=== PATIENT | male | born 1975 | race Caucasian/White ===

== ENCOUNTER 2022-04-30 15:56 | Emergency (ER) | payer OTHER, SELFPAY ==
[2022-04-30] MEDS ORDERED: cloNIDine 0.1 MG TAB ONE (17:11)
== END 2022-04-30 17:23 | disposition home or self-care (01) ==
LOC: MADERS 15:56
DX: I10 Essential (primary) hypertension (principal); F17.220 Nicotine dependence, chewing tobacco, uncomplicated
CPT/HCPCS: 99281